=== PATIENT | male | born 2000 | race African-American/Black ===

== ENCOUNTER 2020-09-12 20:54 | Emergency (ER) | payer SELFPAY ==
--- NOTE | 2020-09-12 20:56 | EDM.PDOC ---
ED HPI GENERAL MEDICAL PROBLEM - General Chief Complaint: Lower Extremity Injury/Pain Stated Complaint: RT ANKLE INJURY Time Seen by Provider: 09/12/20 20:55 Source of Information: Reports: Patient History Limitations: Reports: No Limitations - History of Present Illness INITIAL COMMENTS - FREE TEXT/NARRATIVE: HISTORY AND PHYSICAL: History of present illness: Patient is a 20-year-old male who presents to the emergency room with complaints of right lateral ankle pain. He states he was doing drills for track practice when he hit the outside of his ankle on a beam. Increased pain with palpation and weightbearing. He denies any numbness, tingling, saddle paresthesia or weakness of the extremity. Patient denies any fever, chills, headache, change in vision, syncope or near syncope. Denies any chest pain, back pain, shortness of breath or cough. Denies any GI or symptoms. Review of systems: As per history of present illness and below otherwise all systems reviewed and negative. Past medical history: As per history of present illness and as reviewed below otherwise noncontributory. Surgical history: As per history of present illness and as reviewed below otherwise noncontributory. Social history: See social history for further information Family history: As per history of present illness and as reviewed below otherwise noncontributory. Physical exam: General: Well developed and well nourished. Alert and orientated x 3. Nontoxic in appearance and in no acute distress. Vital signs are stable and have been reviewed by me. Nursing notes were reviewed. HEENT: Atraumatic, normocephalic, pupils equal and reactive bilaterally, negative for conjunctival pallor or scleral icterus, mucous membranes moist, trachea midline. No drooling or trismus noted. No meningeal signs. No hot potato voice noted. Lungs: Clear to auscultation, breath sounds equal bilaterally, chest nontender. Normal work of breathing, no accessory muscles used. Heart: S1S2, regular rate and rhythm without overt murmur Abdomen: Soft, nondistended, nontender. Skin: Intact, warm, dry. No lesions or rashes noted. Hematologic: No petechiae or purpra. Mucosa appropriate color and normal nail bed color and refill. Extremities: Tenderness with palpation over the right lateral malleolus. Good flexion and extension at the ankle. Moves all extremities per self without difficulty or deficits, negative for cords or calf pain. Strong pedal and pretibial pulses bilaterally. No soft tissue swelling is noted. Neurovascular unremarkable. Neuro: Awake, alert, oriented. Cranial nerves II through XII unremarkable. Cerebellum unremarkable. Motor and sensory unremarkable throughout. Exam nonfocal. Psychiatric: Mood and affect are appropriate. Normal thought process. Answering questions appropriately. Notes: X-ray shows no acute fracture. I will have the patient use an John wrap and crutches over the next 1 - 3 days to be nonweightbearing and allow for rest, ankle sprain. I have talked with the patient about today's findings, in addition to providing specific details for plan of care. Reassessment at the time of disposition demonstrates that the patient is in no acute distress. The patient is stable for discharge, counseling was provided and we discussed in great detail signs and symptoms that would prompt them to return to the Emergency Department. Medication, follow up and supportive care measures were reviewed and discussed. Voices understanding and is agreeable to plan of care. Denies any further questions or concerns at this time. Diagnostics: X-ray Therapeutics: John wrap, crutches, Percocet Prescription: None Impression: Right ankle sprain Plan: 1. X-ray shows no acute fracture. Rest, ice, elevate the affected extremity. Please wear the John wrap and use the crutches to be nonweightbearing over the next 1 to 3 days as directed. 2. Tylenol and/or Ibuprofen as needed for pain management. 3. Follow up with the Orthopedic provider as we discussed. Return to the ED as needed and as discussed. Definitive disposition and diagnosis as appropriate pending reevaluation and review of above. right ankle Pain Score (Numeric/FACES): 4 - Related Data Allergies Allergy/AdvReac Type Severity Reaction Status Date / Time No Known Allergies Allergy Verified 09/12/20 21:10 Home Meds: Home Meds . [No Known Home Meds] 09/12/20 [History] Review of Systems - Review of Systems Review Of Systems: Comprehensive ROS is negative, except as noted in HPI. ED EXAM, GENERAL - Physical Exam Exam: See Below (See dictation) Course - Vital Signs Last Recorded V/S: Last Vital Signs Temp 98.8 F 09/12/20 21:06 Pulse 62 09/12/20 21:06 Resp 16 01/06/21 21:06 BP 141/87 H 09/12/20 21:06 Pulse Ox 100 09/12/20 21:06 - Orders/Labs/Meds Orders: Active Orders 24 hr Category Date Time Status Acetaminophen/oxyCODONE [Percocet 325-5 MG] Med 09/12/20 21:32 Once 1 tab PO ONETIME ONE DME for Discharge [COMM] Stat Oth 09/12/20 21:30 Ordered Departure - Departure Time of Disposition: 21:29 Disposition: Home, Self-Care 01 Clinical Impression: Ankle sprain Qualifiers: Encounter type: initial encounter Involved ligament of ankle: unspecified ligament Laterality: right Qualified Code(s): S93.401A - Sprain of unspecified ligament of right ankle, initial encounter - Discharge Information Instructions: Ankle Sprain, [id number] Referrals: PCP,None [Primary Care Provider] - Forms: ED Department Discharge Additional Instructions: The following information is given to patients seen in the emergency department who are being discharged to home. This information is to outline your options for follow-up care. We provide all patients seen in our emergency department with a follow-up referral. The need for follow-up, as well as the timing and circumstances, are variable depending upon the specifics of your emergency department visit. If you don't have a primary care physician on staff, we will provide you with a referral. We always advise you to contact your personal physician following an emergency department visit to inform them of the circumstance of the visit and for follow-up with them and/or the need for any referrals to a consulting specialist. The emergency department will also refer you to a specialist when appropriate. This referral assures that you have the opportunity for follow-up care with a specialist. All of these measure are taken in an effort to provide you with optimal care, which includes your follow-up. Under all circumstances we always encourage you to contact your private physician who remains a resource for coordinating your care. When calling for follow-up care, please make the office aware that this follow-up is from your recent emergency room visit. If for any reason you are refused follow-up, please contact the [facility] at and asked to speak to the emergency department charge nurse. [facility] [address] [place] [id number] [facility] [address] [place] [address] Thank you for choosing the [facility] emergency department in [place] for your medical needs today. It was a pleasure caring for you. Today you were seen in the emergency department for ankle injury/pain. 1. X-ray shows no acute fracture. Rest, ice, elevate the affected extremity. Please wear the john wrap and use the crutches to be nonweightbearing over the next 1 to 3 days as directed. 2. Tylenol and/or Ibuprofen as needed for pain management. 3. Follow up with the Orthopedic provider as we discussed. Return to the ED as needed and as discussed. Sepsis Event Note (ED) - Focused Exam Vital Signs: Vital Signs Temp Pulse Resp BP Pulse Ox 09/12/20 21:06 98.8 F 62 16 141/87 H 100 - My Orders Last 24 Hours: My Active Orders 09/12/20 21:30 DME for Discharge [COMM] Stat 09/12/20 21:32 Acetaminophen/oxyCODONE [Percocet 325-5 MG] 1 tab PO ONETIME ONE - Assessment/Plan Last 24 Hours: My Active Orders 09/12/20 21:30 DME for Discharge [COMM] Stat 09/12/20 21:32 Acetaminophen/oxyCODONE [Percocet 325-5 MG] 1 tab PO ONETIME ONE
--- NOTE | 2020-09-12 21:31 | CR ---
Indication: Pain lateral malleolus came in contact with metal track yoselyn a few days ago Technique: Three views of the right ankle Comparison: No comparison Findings: Normal alignment. Talar dome is intact. Ankle mortise is preserved. No acute fractures. Mild soft tissue swelling. Impression: No acute fracture. Dictated by Vandana Calderón MD @ Sep 12 2020 9:27PM Signed by Dr. Vandana Calderón @ Sep 12 2020 9:29PM
[2020-09-12] MEDS ORDERED: Acetaminophen/oxyCODONE 325-5 MG Tab PO ONE (21:32)
== END 2020-09-12 22:00 | disposition home or self-care (01) ==
LOC: MW.ED 20:54
DX: S93.401A Sprain of unspecified ligament of right ankle, initial encounter (principal); W22.8XXA Striking against or struck by other objects, initial encounter
CPT/HCPCS: 73610; 99283; A9270